=== PATIENT | female | born 1975 | race Caucasian/White ===

== ENCOUNTER 2017-01-18 02:12 | Emergency (ER) | payer SELFPAY ==
[2017-01-18 03:21] VITALS: BP 122/76
== END 2017-01-18 03:48 | disposition home or self-care (01) ==
LOC: ED 02:12
DX: S39.012A Strain of muscle, fascia and tendon of lower back, initial encounter (principal); X50.0XXA Overexertion from strenuous movement or load, initial encounter; Y93.89 Activity, other specified; Y92.89 Other specified places as the place of occurrence of the external cause; Y99.8 Other external cause status
CPT/HCPCS: J1885

== ENCOUNTER 2019-09-04 03:56 | Emergency (ER) | payer MEDICAID ==
[~2019-09-04] VITALS: Ht 152.4 cm; Wt 61.7 kg
[2019-09-04 04:01] VITALS: Ht 152.4 cm; Wt 61.7 kg
[2019-09-04 04:37] LABS: CALCIUM 7.9 mg/dL (8.5-10.1); CARBON DIOXIDE 26.8 mmol/L (21-32); CHLORIDE SERUM 104 mmol/L (98-107); CREATININE SERUM 0.7 mg/dL (0.6-1.0); GFR1 > 60 mL/min; GLUCOSE SERUM 101 mg/dL (74-106); POTASSIUM SERUM 3.8 mmol/L (3.5-5.1); SODIUM SERUM 140 mmol/L (136-145)
[2019-09-04 04:42] LABS: ALBUMIN 3.7 g/dL (3.4-5.0); ALKALINE PHOSPHATASE 62 U/L (46-116); ALT/SGPT 19 U/L (14-59); AST/SGOT 13 U/L (15-37); BILIRUBIN TOTAL 0.4 mg/dL (0.20-1.00)
[2019-09-04 05:00] LABS: PLATELET COUNT 275 x10^3mcL (130-400)
[2019-09-04 05:17] LABS: RED CELL DISTRIBUTION WIDTH 18.9 % (11.5-14.5)
[2019-09-04 05:25] LABS: BAND NEUTROPHIL 0 % (0-10); BASOPHIL 0 % (0-2); MONOCYTE 6 % (0-7); SEGMENTED NEUTROPHILS 55 % (37-75)
[2019-09-04 05:26] LABS: rbc morphology (normal/abnorm) ABNORMAL (NORMAL)
[2019-09-04 05:28] LABS: schistocyte (helmet cell) 1+
[2019-09-04 05:29] LABS: PLATELET MORPHOLOGY LARGE PLATELET SEEN
[2019-09-04 05:47] VITALS: BP 111/63
== END 2019-09-04 05:47 | disposition home or self-care (01) ==
LOC: ED 03:56
PROVIDERS: Emergency Medicine
DX: R07.89 Other chest pain (principal); D50.9 Iron deficiency anemia, unspecified
CPT/HCPCS: 36415

== ENCOUNTER 2019-12-16 20:07 | Inpatient (IN) | payer MEDICAID ==
[~2019-12-16] VITALS: Ht 152.4 cm; Wt 60.8 kg
[2019-12-16 20:26] VITALS: Ht 152.4 cm; Wt 60.8 kg
[2019-12-16 22:58] LABS: BASOPHIL % 0.2 % (0-2); PLATELET COUNT 316 x10^3mcL (130-400)
[2019-12-16 23:14] LABS: RED CELL DISTRIBUTION WIDTH 20.5 % (11.5-14.5)
[2019-12-16 23:15] LABS: rbc morphology (normal/abnorm) ABNORMAL (NORMAL)
[2019-12-16 23:17] LABS: CALCIUM 8.5 mg/dL (8.5-10.1); CARBON DIOXIDE 30.1 mmol/L (21-32); CHLORIDE SERUM 106 mmol/L (98-107); CREATININE SERUM 0.8 mg/dL (0.6-1.0); GFR1 > 60 mL/min; GLUCOSE SERUM 94 mg/dL (74-106); SODIUM SERUM 143 mmol/L (136-145)
[2019-12-16 23:22] LABS: ALBUMIN 4.2 g/dL (3.4-5.0); ALKALINE PHOSPHATASE 65 U/L (46-116); ALT/SGPT 23 U/L (14-59); AST/SGOT 15 U/L (15-37); BILIRUBIN TOTAL 0.5 mg/dL (0.20-1.00); TOTAL PROTEIN, SERUM 8.1 g/dL (6.4-8.2)
[2019-12-17] MEDS ORDERED: BLACK COHOSH40 MG PO (01:07)
[2019-12-17 01:22] VITALS: BP 114/56
[2019-12-17 02:33] LABS: CHOLESTEROL/HDL RATIO 4.9
[2019-12-17 02:42] LABS: T3 TOTAL 0.98 ng/mL
[2019-12-17 03:16] LABS: FREE T4 1.03 ng/dL (0.76-1.46); FREE THYROXINE INDEX 2.6 ug/dL (1.4-4.5); T4(THYROXINE) 9.3 ug/dL (4.7-13.3)
[2019-12-17 05:44] VITALS: BP 110/60
[2019-12-17 08:12] VITALS: BP 112/55
[2019-12-17 10:54] LABS: microscopic required? NO
[2019-12-17 11:01] LABS: urine erythrocyte NEGATIVE (NEGATIVE)
[2019-12-17 12:11] VITALS: BP 97/58
[2019-12-17 14:25] LABS: BASOPHIL % 0.8 % (0-2); PLATELET COUNT 286 x10^3mcL (130-400)
[2019-12-17 14:31] LABS: CALCIUM 8.9 mg/dL (8.5-10.1); CARBON DIOXIDE 24.9 mmol/L (21-32); CHLORIDE SERUM 113 mmol/L (98-107); CREATININE SERUM 0.7 mg/dL (0.6-1.0); GFR1 > 60 mL/min; GLUCOSE SERUM 92 mg/dL (74-106); POTASSIUM SERUM 3.6 mmol/L (3.5-5.1); RED CELL DISTRIBUTION WIDTH 30.2 % (11.5-14.5); SODIUM SERUM 138 mmol/L (136-145)
[2019-12-17 14:40] LABS: rbc morphology (normal/abnorm) ABNORMAL (NORMAL)
[2019-12-17 16:07] VITALS: BP 113/63
[2019-12-17 19:52] VITALS: BP 117/63
[2019-12-18 04:45] VITALS: BP 106/60
[2019-12-18 06:53] LABS: BASOPHIL % 0.7 % (0-2); PLATELET COUNT 267 x10^3mcL (130-400)
[2019-12-18 07:01] LABS: RED CELL DISTRIBUTION WIDTH 29.9 % (11.5-14.5)
[2019-12-18 07:11] LABS: CALCIUM 8.6 mg/dL (8.5-10.1); CARBON DIOXIDE 23.6 mmol/L (21-32); CHLORIDE SERUM 111 mmol/L (98-107); CREATININE SERUM 0.6 mg/dL (0.6-1.0); GFR1 > 60 mL/min; GLUCOSE SERUM 83 mg/dL (74-106); MAGNESIUM 2.4 mg/dL (1.8-2.4); PHOSPHOROUS 3.2 mg/dL (2.5-4.9); POTASSIUM SERUM 3.6 mmol/L (3.5-5.1); SODIUM SERUM 143 mmol/L (136-145)
[2019-12-18 09:23] VITALS: BP 106/65
[2019-12-18 13:09] VITALS: BP 118/62
[2019-12-18 17:50] VITALS: BP 108/62
[2019-12-18 21:26] VITALS: BP 102/56
[2019-12-19 05:35] VITALS: BP 111/58
[2019-12-19 06:45] LABS: PLATELET COUNT 268 x10^3mcL (130-400)
[2019-12-19 07:01] LABS: BASOPHIL % 0 % (0-2); RED CELL DISTRIBUTION WIDTH 31.2 % (11.5-14.5)
[2019-12-19 07:08] LABS: CALCIUM 8.8 mg/dL (8.5-10.1); CARBON DIOXIDE 23.2 mmol/L (21-32); CHLORIDE SERUM 106 mmol/L (98-107); CREATININE SERUM 0.8 mg/dL (0.6-1.0); GFR1 > 60 mL/min; GLUCOSE SERUM 112 mg/dL (74-106); POTASSIUM SERUM 4.1 mmol/L (3.5-5.1); SODIUM SERUM 137 mmol/L (136-145)
[2019-12-19 08:56] VITALS: BP 102/58
[2019-12-19 11:11] LABS: rbc morphology (normal/abnorm) ABNORMAL (NORMAL)
[2019-12-19 14:21] LABS: IRON 64 ug/dL (50-170); TOTAL IRON BINDING CAPACITY 411 ug/dL (250-450)
[2019-12-19 17:58] VITALS: BP 106/73
[2019-12-19 20:50] VITALS: BP 114/64
[2019-12-20 05:10] VITALS: BP 101/56
[2019-12-20 06:41] LABS: BASOPHIL % 0.4 % (0-2); PLATELET COUNT 230 x10^3mcL (130-400)
[2019-12-20 06:56] LABS: CALCIUM 8.6 mg/dL (8.5-10.1); CHLORIDE SERUM 108 mmol/L (98-107); CREATININE SERUM 0.9 mg/dL (0.6-1.0); GFR1 > 60 mL/min; GLUCOSE SERUM 81 mg/dL (74-106); MAGNESIUM 1.9 mg/dL (1.8-2.4); PHOSPHOROUS 4.5 mg/dL (2.5-4.9); POTASSIUM SERUM 3.6 mmol/L (3.5-5.1); SODIUM SERUM 141 mmol/L (136-145)
[2019-12-20 07:17] LABS: RED CELL DISTRIBUTION WIDTH 31.7 % (11.5-14.5)
[2019-12-20 08:16] VITALS: BP 122/62
[2019-12-20] MEDS ORDERED: ACETAMINOPHEN-H1 TA1 PO (11:42)
[2019-12-20 12:32] VITALS: BP 111/65
[2019-12-20] MEDS ORDERED: COL100 PO (13:20)
[2019-12-20 14:30] VITALS: BP 111/65
== END 2019-12-20 14:50 | disposition home or self-care (01) | DRG 226 ==
LOC: ED 20:07 → MU 12-17 00:17 → DU 12-17 00:17 → MU 12-18 09:43
PROVIDERS: Internal Medicine Gastroenterology; Student in an Organized Health Care Education/Training Program; Surgery; ADMIT Internal Medicine; ATTEND Internal Medicine
PROC: 30233N1 Transfusion of Nonautologous Red Blood Cells into Peripheral Vein, Percutaneous Approach (ICD-10-PCS; principal; 2019-12-17)
PROC: 0DJD8ZZ Inspection of Lower Intestinal Tract, Via Natural or Artificial Opening Endoscopic (ICD-10-PCS; 2019-12-18)
PROC: 0DBP8ZX Excision of Rectum, Via Natural or Artificial Opening Endoscopic, Diagnostic (ICD-10-PCS; 2019-12-18)
PROC: 06BY4ZC Excision of Hemorrhoidal Plexus, Percutaneous Endoscopic Approach (ICD-10-PCS; 2019-12-18 08:00)
PROC: 0DB78ZX Excision of Stomach, Pylorus, Via Natural or Artificial Opening Endoscopic, Diagnostic (ICD-10-PCS; 2019-12-18 08:00)
DX: K64.8 Other hemorrhoids (principal); D50.9 Iron deficiency anemia, unspecified; K64.4 Residual hemorrhoidal skin tags; K59.04 Chronic idiopathic constipation; N91.2 Amenorrhea, unspecified; N91.5 Oligomenorrhea, unspecified; Z79.899 Other long term (current) drug therapy; Z98.891 History of uterine scar from previous surgery; Z20.828 Contact with and (suspected) exposure to other viral communicable diseases
CPT/HCPCS: 43235; 45378; 82962; 84439; C9113; G0378; J0694; J1200; J1610; J2250; J2310; J2405; J2704; J2710; J2916; J3010; J3480; J3490; J7030; J7050; P9016; Q0092; Q0163

== ENCOUNTER 2019-12-20 21:46 | Emergency (ER) | payer MEDICAID ==
[~2019-12-20] VITALS: Ht 152.4 cm; Wt 61.7 kg
[~2019-12-20 21:46] MED LIST: ACETAMINOPHEN-H1 TA1 PO; BLACK COHOSH40 MG PO; COL100 PO
[2019-12-20 22:04] VITALS: Ht 152.4 cm; Wt 61.7 kg
[2019-12-20 22:39] VITALS: BP 138/78
== END 2019-12-20 22:39 | disposition home or self-care (01) ==
LOC: ED 21:46
DX: K64.9 Unspecified hemorrhoids (principal); Z98.890 Other specified postprocedural states